=== PATIENT | female | born 2000 | race Two or more races ===

== ENCOUNTER 2024-03-21 17:33 | Emergency (ER) | payer OTHER | END 2024-03-21 18:23 | disposition left against medical advice (07) | LOC: ER 17:33 | DX: S09.90XA Unspecified injury of head, initial encounter (principal); Z53.21 Procedure and treatment not carried out due to patient leaving prior to being seen by health care provider; X58.XXXA Exposure to other specified factors, initial encounter; Y93.89 Activity, other specified; Y92.89 Other specified places as the place of occurrence of the external cause; Y99.8 Other external cause status ==